=== PATIENT | male | born 1965 | race Two or more races ===

== ENCOUNTER 2024-01-12 07:07 | Emergency (ER) | payer OTHER ==
[~2024-01-12] VITALS: Ht 172.7 cm; Wt 83.9 kg
[2024-01-12] MEDS ORDERED: ZESTRIL20 MG (07:10)
[2024-01-12] MEDS ORDERED: ATORVASTATIN CA20 MG (07:10)
[2024-01-12] MEDS ORDERED: 0.9 % SODIUM CHLORIDE 1,000 ML IV STA (08:23)
[2024-01-12] MEDS ORDERED: KETOROLAC TROMETHAMINE 30 MG VIAL IV ONE (08:30)
[2024-01-12] MEDS ORDERED: KETOROLAC TROMETHAMINE 30 MG VIAL ONE (08:33)
[2024-01-12] MEDS ORDERED: BARIUM SULFATE 450 ML ORAL.SUSP PO ONE (08:33)
[2024-01-12 08:58] LABS: HEMATOCRIT 43.6 % (39.0-48.0); MEAN CELL VOLUME 82.1 fL (80.0-100.00); MEAN CORPUSCULAR HEMOGLOBIN 28.2 pg (27.00-32.0); MEAN CORPUSCULAR HGB CONC 34.4 g/dl (32.0-36.0); PLATELET COUNT 255 K/uL (150-450); RED BLOOD COUNT 5.31 M/uL (4.00-6.00)
[2024-01-12 09:41] LABS: CALCIUM 9.5 mg/dL (8.5-10.1); CREATININE SERUM 1.15 mg/dL (0.70-1.30); GFR 65.09; POTASSIUM 4.53 mEq/L (3.5-5.1)
[2024-01-12 10:15] LABS: PH,URINE 5.5 (5.0-8.0); URINE APPEARANCE Clear; URINE BILIRRUBIN Negative (NEGATIVE); URINE BLOOD Negative; URINE COLOR Yellow; URINE GLUCOSE Negative (NEGATIVE); URINE KETONE Trace (NEGATIVE); URINE LEUKOCYTE Negative; URINE NITRATE Negative; URINE PROTEIN Trace (NEGATIVE); URINE UROBILINOGEN 0.2 E.U./dl
[2024-01-12 10:22] LABS: URINE BACTERIA 8.8 uL (0.0-1933); URINE RBC 11.1 uL (0.0-20.8); URINE WBC 2.6 uL (0.0-23.2)
== END 2024-01-12 12:48 | disposition home or self-care (01) ==
LOC: ER 07:09
PROVIDERS: Emergency Medicine
DX: R10.9 Unspecified abdominal pain (principal); I10 Essential (primary) hypertension
CPT/HCPCS: 36415; 74177; 96365; 96366; 99284; J1885; J7030; Q9965